=== PATIENT | male | born 2000 | race African-American/Black ===

== ENCOUNTER 2021-05-23 10:46 | Emergency (ER) | payer OTHER ==
[~2021-05-23] VITALS: Ht 190.5 cm; Wt 127.9 kg
[2021-05-23] MEDS ORDERED: ACETAMINOPHEN 325 MG TAB PO ONE (12:50)
[2021-05-23] MEDS ORDERED: CYCLOBENZAPRINE 5MG TABLET PO ONE (12:50)
[2021-05-23] MEDS ORDERED: IBUP-1022 PO (13:40)
[2021-05-23] MEDS ORDERED: ACET-897 PO (13:40)
[2021-05-23] MEDS ORDERED: CYCL-707 PO (13:40)
[2021-05-23 14:16] VITALS: BP 138/86
== END 2021-05-23 14:16 | disposition home or self-care (01) ==
LOC: M ED 10:46
DX: M54.50 Low back pain, unspecified (principal); F17.200 Nicotine dependence, unspecified, uncomplicated

== ENCOUNTER → 2022-09-21 | Outpatient (CLI) | payer OTHER ==
[~2022-09-21] MED LIST: ACET-897 PO; CYCL-707 PO; IBUP-1022 PO
== END ==
LOC: M PLAIMG 09:21
PROVIDERS: ATTEND Nurse Practitioner Family
DX: M25.561 Pain in right knee (principal); M25.562 Pain in left knee